=== PATIENT | male | born 1945 | race African-American/Black ===

== ENCOUNTER 2021-02-08 14:55 | Outpatient (CLI) | payer MEDICARE | END 2021-02-08 14:56 | disposition home or self-care (01) | LOC: CSHMRI 14:55 | PROVIDERS: ATTEND Anesthesiology Pain Medicine | DX: M47.26 Other spondylosis with radiculopathy, lumbar region (principal) | CPT/HCPCS: 72148 ==

== ENCOUNTER 2021-12-06 11:20 | Outpatient (CLI) | payer MEDICARE | END 2021-12-06 11:21 | disposition home or self-care (01) | LOC: CSHULT 11:20 | PROVIDERS: ATTEND Family Medicine | DX: R22.9 Localized swelling, mass and lump, unspecified (principal) | CPT/HCPCS: 93970 ==

== ENCOUNTER 2022-04-02 12:51 | Outpatient (CLI) | payer MEDICARE | END 2022-04-02 12:52 | disposition home or self-care (01) | LOC: CSHWCC 12:51 | PROVIDERS: ATTEND Nurse Practitioner Family | DX: I87.312 Chronic venous hypertension (idiopathic) with ulcer of left lower extremity (principal); L97.822 Non-pressure chronic ulcer of other part of left lower leg with fat layer exposed; R60.0 Localized edema | CPT/HCPCS: 11042; 97139; G0463; 99203 ==

== ENCOUNTER 2022-04-16 13:47 | Outpatient (CLI) | payer MEDICARE | END 2022-04-16 13:48 | disposition home or self-care (01) | LOC: CSHWCC 13:47 | PROVIDERS: ATTEND Nurse Practitioner Family | DX: I87.312 Chronic venous hypertension (idiopathic) with ulcer of left lower extremity (principal); L97.822 Non-pressure chronic ulcer of other part of left lower leg with fat layer exposed; R60.0 Localized edema | CPT/HCPCS: 99212; G0463 ==

== ENCOUNTER 2023-07-07 13:09 | Outpatient (CLI) | payer MEDICARE | END 2023-07-07 13:10 | disposition home or self-care (01) | LOC: CSHMRI 13:09 | PROVIDERS: ATTEND Surgery | DX: M51.26 Other intervertebral disc displacement, lumbar region (principal); M47.816 Spondylosis without myelopathy or radiculopathy, lumbar region; M47.817 Spondylosis without myelopathy or radiculopathy, lumbosacral region | CPT/HCPCS: 72110; 72148 ==

== ENCOUNTER 2023-12-30 08:40 | Outpatient (CLI) | payer MEDICARE | END 2023-12-30 08:41 | disposition home or self-care (01) | LOC: CSHWCC 08:40 | PROVIDERS: ATTEND Nurse Practitioner Family | DX: T81.31XD Disruption of external operation (surgical) wound, not elsewhere classified, subsequent encounter (principal); T81.32XD Disruption of internal operation (surgical) wound, not elsewhere classified, subsequent encounter; E11.628 Type 2 diabetes mellitus with other skin complications | CPT/HCPCS: 11043; 11046; G0463; 99213 ==

== ENCOUNTER 2024-01-01 12:43 | Outpatient (CLI) | payer MEDICARE | END 2024-01-01 12:44 | disposition home or self-care (01) | LOC: CSHWCC 12:43 | PROVIDERS: ATTEND Nurse Practitioner Family | DX: T81.31XD Disruption of external operation (surgical) wound, not elsewhere classified, subsequent encounter (principal); T81.32XD Disruption of internal operation (surgical) wound, not elsewhere classified, subsequent encounter; E11.628 Type 2 diabetes mellitus with other skin complications | CPT/HCPCS: 97605 ==

== ENCOUNTER 2024-01-05 13:55 | Outpatient (CLI) | payer MEDICARE | END 2024-01-05 13:56 | disposition home or self-care (01) | LOC: CSHWCC 13:55 | PROVIDERS: ATTEND Nurse Practitioner Family | DX: T81.31XD Disruption of external operation (surgical) wound, not elsewhere classified, subsequent encounter (principal); T81.32XD Disruption of internal operation (surgical) wound, not elsewhere classified, subsequent encounter; E11.628 Type 2 diabetes mellitus with other skin complications | CPT/HCPCS: 11043; 97605 ==

== ENCOUNTER 2024-01-08 11:17 | Outpatient (CLI) | payer MEDICARE | END 2024-01-08 11:18 | disposition home or self-care (01) | LOC: CSHWCC 11:17 | PROVIDERS: ATTEND Nurse Practitioner Family | DX: T81.31XD Disruption of external operation (surgical) wound, not elsewhere classified, subsequent encounter (principal); T81.32XD Disruption of internal operation (surgical) wound, not elsewhere classified, subsequent encounter; E11.628 Type 2 diabetes mellitus with other skin complications | CPT/HCPCS: 17250; 97605 ==

== ENCOUNTER 2024-01-11 14:28 | Outpatient (CLI) | payer MEDICARE | END 2024-01-11 14:29 | disposition home or self-care (01) | LOC: CSHWCC 14:28 | PROVIDERS: ATTEND Nurse Practitioner Family | DX: T81.31XD Disruption of external operation (surgical) wound, not elsewhere classified, subsequent encounter (principal); T81.32XD Disruption of internal operation (surgical) wound, not elsewhere classified, subsequent encounter; E11.628 Type 2 diabetes mellitus with other skin complications | CPT/HCPCS: 97605 ==

== ENCOUNTER 2024-01-14 16:14 | Outpatient (CLI) | payer MEDICARE | END 2024-01-14 16:15 | disposition home or self-care (01) | LOC: CSHWCC 16:14 | PROVIDERS: ATTEND Nurse Practitioner Family | DX: T81.31XD Disruption of external operation (surgical) wound, not elsewhere classified, subsequent encounter (principal); T81.32XD Disruption of internal operation (surgical) wound, not elsewhere classified, subsequent encounter; E11.628 Type 2 diabetes mellitus with other skin complications | CPT/HCPCS: 11043; 11046; 70450; 72125; 72131; 97605 ==

== ENCOUNTER 2024-01-18 13:26 | Outpatient (CLI) | payer MEDICARE | END 2024-01-18 13:27 | disposition home or self-care (01) | LOC: CSHWCC 13:26 | PROVIDERS: ATTEND Nurse Practitioner Family | DX: T81.31XD Disruption of external operation (surgical) wound, not elsewhere classified, subsequent encounter (principal); T81.32XD Disruption of internal operation (surgical) wound, not elsewhere classified, subsequent encounter; E11.628 Type 2 diabetes mellitus with other skin complications | CPT/HCPCS: 97605 ==

== ENCOUNTER 2024-01-21 15:47 | Outpatient (CLI) | payer MEDICARE | END 2024-01-21 15:48 | disposition home or self-care (01) | LOC: CSHWCC 15:47 | PROVIDERS: ATTEND Nurse Practitioner Family | DX: T81.31XD Disruption of external operation (surgical) wound, not elsewhere classified, subsequent encounter (principal); T81.32XD Disruption of internal operation (surgical) wound, not elsewhere classified, subsequent encounter; E11.628 Type 2 diabetes mellitus with other skin complications | CPT/HCPCS: 11042; 97605 ==

== ENCOUNTER 2024-01-25 13:30 | Outpatient (CLI) | payer MEDICARE | END 2024-01-25 13:31 | disposition home or self-care (01) | LOC: CSHWCC 13:30 | PROVIDERS: ATTEND Nurse Practitioner Family | DX: T81.31XD Disruption of external operation (surgical) wound, not elsewhere classified, subsequent encounter (principal); T81.32XD Disruption of internal operation (surgical) wound, not elsewhere classified, subsequent encounter; E11.628 Type 2 diabetes mellitus with other skin complications | CPT/HCPCS: 97605 ==

== ENCOUNTER 2024-01-28 12:39 | Outpatient (CLI) | payer MEDICARE | END 2024-01-28 12:40 | disposition home or self-care (01) | LOC: CSHWCC 12:39 | PROVIDERS: ATTEND Nurse Practitioner Family | DX: T81.31XD Disruption of external operation (surgical) wound, not elsewhere classified, subsequent encounter (principal); T81.32XD Disruption of internal operation (surgical) wound, not elsewhere classified, subsequent encounter; E11.628 Type 2 diabetes mellitus with other skin complications | CPT/HCPCS: 11042; 11045 ==

== ENCOUNTER 2024-02-01 | Outpatient (CLI) | payer MEDICARE | END 2024-02-01 14:23 | disposition home or self-care (01) | DX: T81.31XD Disruption of external operation (surgical) wound, not elsewhere classified, subsequent encounter (principal); T81.32XD Disruption of internal operation (surgical) wound, not elsewhere classified, subsequent encounter; E11.628 Type 2 diabetes mellitus with other skin complications ==

== ENCOUNTER 2024-02-08 15:51 | Outpatient (CLI) | payer MEDICARE | END 2024-02-08 15:52 | disposition home or self-care (01) | LOC: CSHWCC 15:51 | PROVIDERS: ATTEND Nurse Practitioner Family | DX: T81.31XD Disruption of external operation (surgical) wound, not elsewhere classified, subsequent encounter (principal); T81.32XD Disruption of internal operation (surgical) wound, not elsewhere classified, subsequent encounter; E11.628 Type 2 diabetes mellitus with other skin complications | CPT/HCPCS: 97605 ==

== ENCOUNTER 2024-02-15 13:26 | Outpatient (CLI) | payer MEDICARE | END 2024-02-15 13:27 | disposition home or self-care (01) | LOC: CSHWCC 13:26 | PROVIDERS: ATTEND Nurse Practitioner Family | DX: T81.31XA Disruption of external operation (surgical) wound, not elsewhere classified, initial encounter (principal); E11.628 Type 2 diabetes mellitus with other skin complications | CPT/HCPCS: 11043; 87070; 87205; 97605; G0463; 87077; 87186; 99213 ==

== ENCOUNTER 2024-02-18 15:15 | Outpatient (CLI) | payer MEDICARE | END 2024-02-18 15:16 | disposition home or self-care (01) | LOC: CSHWCC 15:15 | PROVIDERS: ATTEND Nurse Practitioner Family | DX: T81.31XD Disruption of external operation (surgical) wound, not elsewhere classified, subsequent encounter (principal); T81.32XD Disruption of internal operation (surgical) wound, not elsewhere classified, subsequent encounter; E11.628 Type 2 diabetes mellitus with other skin complications | CPT/HCPCS: 97605 ==

== ENCOUNTER 2024-03-28 12:45 | Outpatient (CLI) | payer MEDICARE | END 2024-03-28 12:46 | disposition home or self-care (01) | LOC: CSHWCC 12:45 | PROVIDERS: ATTEND Family Medicine | DX: T81.31XD Disruption of external operation (surgical) wound, not elsewhere classified, subsequent encounter (principal); T81.32XD Disruption of internal operation (surgical) wound, not elsewhere classified, subsequent encounter; E11.628 Type 2 diabetes mellitus with other skin complications | CPT/HCPCS: 97597; 97598 ==

== ENCOUNTER 2024-03-31 16:11 | Outpatient (CLI) | payer MEDICARE | END 2024-03-31 16:12 | disposition home or self-care (01) | LOC: CSHWCC 16:11 | PROVIDERS: ATTEND Nurse Practitioner Family | DX: E11.628 Type 2 diabetes mellitus with other skin complications (principal); T81.31XD Disruption of external operation (surgical) wound, not elsewhere classified, subsequent encounter; T81.32XD Disruption of internal operation (surgical) wound, not elsewhere classified, subsequent encounter | CPT/HCPCS: 97605 ==

== ENCOUNTER 2024-04-04 15:22 | Outpatient (CLI) | payer MEDICARE | END 2024-04-04 15:23 | disposition home or self-care (01) | LOC: CSHWCC 15:22 | PROVIDERS: ATTEND Nurse Practitioner Family | DX: T81.31XD Disruption of external operation (surgical) wound, not elsewhere classified, subsequent encounter (principal); T81.32XD Disruption of internal operation (surgical) wound, not elsewhere classified, subsequent encounter; I87.312 Chronic venous hypertension (idiopathic) with ulcer of left lower extremity; E11.628 Type 2 diabetes mellitus with other skin complications | CPT/HCPCS: 11042; 11045; 97605 ==

== ENCOUNTER 2024-04-11 13:13 | Outpatient (CLI) | payer MEDICARE | END 2024-04-11 13:14 | disposition home or self-care (01) | LOC: CSHWCC 13:13 | PROVIDERS: ATTEND Family Medicine | DX: T81.31XD Disruption of external operation (surgical) wound, not elsewhere classified, subsequent encounter (principal); T81.32XD Disruption of internal operation (surgical) wound, not elsewhere classified, subsequent encounter; E11.628 Type 2 diabetes mellitus with other skin complications; I87.312 Chronic venous hypertension (idiopathic) with ulcer of left lower extremity; L97.929 Non-pressure chronic ulcer of unspecified part of left lower leg with unspecified severity | CPT/HCPCS: 97605 ==

== ENCOUNTER 2024-05-02 13:08 | Outpatient (CLI) | payer MEDICARE | END 2024-05-02 13:09 | disposition home or self-care (01) | LOC: CSHWCC 13:08 | PROVIDERS: ATTEND Nurse Practitioner Family | DX: T81.31XD Disruption of external operation (surgical) wound, not elsewhere classified, subsequent encounter (principal); T81.32XD Disruption of internal operation (surgical) wound, not elsewhere classified, subsequent encounter; E11.628 Type 2 diabetes mellitus with other skin complications; I87.312 Chronic venous hypertension (idiopathic) with ulcer of left lower extremity; L97.929 Non-pressure chronic ulcer of unspecified part of left lower leg with unspecified severity | CPT/HCPCS: 11042 ==

== ENCOUNTER 2024-05-09 14:28 | Outpatient (CLI) | payer MEDICARE | END 2024-05-09 14:29 | disposition home or self-care (01) | LOC: CSHWCC 14:28 | PROVIDERS: ATTEND Nurse Practitioner Family | DX: T81.31XD Disruption of external operation (surgical) wound, not elsewhere classified, subsequent encounter (principal); I87.313 Chronic venous hypertension (idiopathic) with ulcer of bilateral lower extremity; E11.628 Type 2 diabetes mellitus with other skin complications; L97.212 Non-pressure chronic ulcer of right calf with fat layer exposed; L97.222 Non-pressure chronic ulcer of left calf with fat layer exposed | CPT/HCPCS: 11042; 11045 ==

== ENCOUNTER 2024-05-20 13:25 | Outpatient (CLI) | payer MEDICARE | END 2024-05-20 13:26 | disposition home or self-care (01) | LOC: CSHWCC 13:25 | PROVIDERS: ATTEND Nurse Practitioner Family | DX: T81.31XD Disruption of external operation (surgical) wound, not elsewhere classified, subsequent encounter (principal); I87.313 Chronic venous hypertension (idiopathic) with ulcer of bilateral lower extremity; E11.628 Type 2 diabetes mellitus with other skin complications; L97.212 Non-pressure chronic ulcer of right calf with fat layer exposed; L97.222 Non-pressure chronic ulcer of left calf with fat layer exposed | CPT/HCPCS: 11042 ==

== ENCOUNTER → 2024-05-27 | Outpatient (CLI) | payer MEDICARE | LOC: CSHWCC 13:00 | PROVIDERS: ATTEND Nurse Practitioner Family | DX: T81.31XD Disruption of external operation (surgical) wound, not elsewhere classified, subsequent encounter (principal); I87.313 Chronic venous hypertension (idiopathic) with ulcer of bilateral lower extremity; E11.628 Type 2 diabetes mellitus with other skin complications; L97.212 Non-pressure chronic ulcer of right calf with fat layer exposed; L97.222 Non-pressure chronic ulcer of left calf with fat layer exposed | CPT/HCPCS: 11042 ==

== ENCOUNTER 2024-06-03 15:03 | Outpatient (CLI) | payer MEDICARE | END 2024-06-03 15:04 | disposition home or self-care (01) | LOC: CSHWCC 15:03 | PROVIDERS: ATTEND Nurse Practitioner Family | DX: T81.31XD Disruption of external operation (surgical) wound, not elsewhere classified, subsequent encounter (principal); E11.628 Type 2 diabetes mellitus with other skin complications; I87.313 Chronic venous hypertension (idiopathic) with ulcer of bilateral lower extremity; E11.622 Type 2 diabetes mellitus with other skin ulcer; L97.212 Non-pressure chronic ulcer of right calf with fat layer exposed; L97.222 Non-pressure chronic ulcer of left calf with fat layer exposed | CPT/HCPCS: 11042 ==

== ENCOUNTER 2024-06-17 14:22 | Outpatient (CLI) | payer MEDICARE | END 2024-06-17 14:23 | disposition home or self-care (01) | LOC: CSHWCC 14:22 | PROVIDERS: ATTEND Nurse Practitioner Family | DX: T81.31XD Disruption of external operation (surgical) wound, not elsewhere classified, subsequent encounter (principal); E11.628 Type 2 diabetes mellitus with other skin complications; I87.313 Chronic venous hypertension (idiopathic) with ulcer of bilateral lower extremity; E11.622 Type 2 diabetes mellitus with other skin ulcer; L97.212 Non-pressure chronic ulcer of right calf with fat layer exposed; L97.222 Non-pressure chronic ulcer of left calf with fat layer exposed | CPT/HCPCS: 97597 ==

== ENCOUNTER 2024-07-15 12:42 | Outpatient (CLI) | payer MEDICARE | END 2024-07-15 12:43 | disposition home or self-care (01) | LOC: CSHWCC 12:42 | PROVIDERS: ATTEND Nurse Practitioner Family | DX: E11.628 Type 2 diabetes mellitus with other skin complications (principal); I87.313 Chronic venous hypertension (idiopathic) with ulcer of bilateral lower extremity; L97.212 Non-pressure chronic ulcer of right calf with fat layer exposed; L97.222 Non-pressure chronic ulcer of left calf with fat layer exposed | CPT/HCPCS: 11042 ==

== ENCOUNTER 2024-08-19 14:14 | Outpatient (CLI) | payer MEDICARE | END 2024-08-19 14:15 | disposition home or self-care (01) | LOC: CSHWCC 14:14 | PROVIDERS: ATTEND Nurse Practitioner Family | DX: I87.313 Chronic venous hypertension (idiopathic) with ulcer of bilateral lower extremity (principal); E11.622 Type 2 diabetes mellitus with other skin ulcer; L97.212 Non-pressure chronic ulcer of right calf with fat layer exposed; L97.222 Non-pressure chronic ulcer of left calf with fat layer exposed; E11.628 Type 2 diabetes mellitus with other skin complications | CPT/HCPCS: 11042; 99213; G0463 ==

== ENCOUNTER 2024-08-26 13:35 | Outpatient (CLI) | payer MEDICARE | END 2024-08-26 13:36 | disposition home or self-care (01) | LOC: CSHWCC 13:35 | PROVIDERS: ATTEND Nurse Practitioner Family | DX: I87.313 Chronic venous hypertension (idiopathic) with ulcer of bilateral lower extremity (principal); E11.622 Type 2 diabetes mellitus with other skin ulcer; L97.212 Non-pressure chronic ulcer of right calf with fat layer exposed; L97.222 Non-pressure chronic ulcer of left calf with fat layer exposed; E11.628 Type 2 diabetes mellitus with other skin complications | CPT/HCPCS: 11042 ==

== ENCOUNTER 2024-09-09 13:55 | Outpatient (CLI) | payer MEDICARE | END 2024-09-09 13:56 | disposition home or self-care (01) | LOC: CSHWCC 13:55 | PROVIDERS: ATTEND Nurse Practitioner Family | DX: I87.313 Chronic venous hypertension (idiopathic) with ulcer of bilateral lower extremity (principal); L97.212 Non-pressure chronic ulcer of right calf with fat layer exposed; L97.222 Non-pressure chronic ulcer of left calf with fat layer exposed; E11.628 Type 2 diabetes mellitus with other skin complications | CPT/HCPCS: 11042 ==

== ENCOUNTER 2024-09-29 11:58 | Outpatient (CLI) | payer MEDICARE | END 2024-09-29 11:59 | disposition home or self-care (01) | LOC: CSHWCC 11:58 | PROVIDERS: ATTEND Nurse Practitioner Family | DX: I87.313 Chronic venous hypertension (idiopathic) with ulcer of bilateral lower extremity (principal); E11.622 Type 2 diabetes mellitus with other skin ulcer; L97.212 Non-pressure chronic ulcer of right calf with fat layer exposed; L97.222 Non-pressure chronic ulcer of left calf with fat layer exposed | CPT/HCPCS: 97597; G0463; 99212 ==

== ENCOUNTER 2024-10-07 11:48 | Outpatient (CLI) | payer MEDICARE | END 2024-10-07 11:49 | disposition home or self-care (01) | LOC: CSHWCC 11:48 | PROVIDERS: ATTEND Nurse Practitioner Family | DX: I87.313 Chronic venous hypertension (idiopathic) with ulcer of bilateral lower extremity (principal); E11.622 Type 2 diabetes mellitus with other skin ulcer; L97.212 Non-pressure chronic ulcer of right calf with fat layer exposed; L97.222 Non-pressure chronic ulcer of left calf with fat layer exposed; E11.628 Type 2 diabetes mellitus with other skin complications | CPT/HCPCS: 99212; G0463 ==

== ENCOUNTER 2024-10-28 12:52 | Outpatient (CLI) | payer MEDICARE | END 2024-10-28 12:53 | disposition home or self-care (01) | LOC: CSHWCC 12:52 | PROVIDERS: ATTEND Family Medicine | DX: E11.628 Type 2 diabetes mellitus with other skin complications (principal); I87.313 Chronic venous hypertension (idiopathic) with ulcer of bilateral lower extremity; L97.212 Non-pressure chronic ulcer of right calf with fat layer exposed; L97.222 Non-pressure chronic ulcer of left calf with fat layer exposed | CPT/HCPCS: 97597 ==

== ENCOUNTER 2024-11-10 12:36 | Outpatient (CLI) | payer MEDICARE | END 2024-11-10 12:37 | disposition home or self-care (01) | LOC: CSHWCC 12:36 | PROVIDERS: ATTEND Nurse Practitioner Family | DX: I87.313 Chronic venous hypertension (idiopathic) with ulcer of bilateral lower extremity (principal); E11.622 Type 2 diabetes mellitus with other skin ulcer; L97.212 Non-pressure chronic ulcer of right calf with fat layer exposed; L97.222 Non-pressure chronic ulcer of left calf with fat layer exposed; E11.628 Type 2 diabetes mellitus with other skin complications | CPT/HCPCS: 99212; G0463 ==

== ENCOUNTER 2024-11-24 11:57 | Outpatient (CLI) | payer MEDICARE | END 2024-11-24 11:58 | disposition home or self-care (01) | LOC: CSHWCC 11:57 | PROVIDERS: ATTEND Nurse Practitioner Family | DX: E11.628 Type 2 diabetes mellitus with other skin complications (principal); I87.313 Chronic venous hypertension (idiopathic) with ulcer of bilateral lower extremity; L97.212 Non-pressure chronic ulcer of right calf with fat layer exposed; L97.222 Non-pressure chronic ulcer of left calf with fat layer exposed | CPT/HCPCS: 11042; 11045; G0463; 99213 ==

== ENCOUNTER 2024-12-01 14:18 | Outpatient (CLI) | payer MEDICARE | END 2024-12-01 14:19 | disposition home or self-care (01) | LOC: CSHWCC 14:18 | PROVIDERS: ATTEND Nurse Practitioner Family | DX: I87.313 Chronic venous hypertension (idiopathic) with ulcer of bilateral lower extremity (principal); E11.622 Type 2 diabetes mellitus with other skin ulcer; L97.212 Non-pressure chronic ulcer of right calf with fat layer exposed; L97.222 Non-pressure chronic ulcer of left calf with fat layer exposed; E11.628 Type 2 diabetes mellitus with other skin complications ==

== ENCOUNTER 2024-12-30 12:43 | Outpatient (CLI) | payer MEDICARE | END 2024-12-30 12:44 | disposition home or self-care (01) | LOC: CSHWCC 12:43 | PROVIDERS: ATTEND Nurse Practitioner Family | DX: Z87.2 Personal history of diseases of the skin and subcutaneous tissue (principal) | CPT/HCPCS: 99212; G0463 ==

== ENCOUNTER 2025-06-28 12:39 | Outpatient (CLI) | payer MEDICARE | END 2025-06-28 12:40 | disposition home or self-care (01) | LOC: CSHWCC 12:39 | PROVIDERS: ATTEND Nurse Practitioner Family | DX: I87.312 Chronic venous hypertension (idiopathic) with ulcer of left lower extremity (principal); E11.628 Type 2 diabetes mellitus with other skin complications; E11.622 Type 2 diabetes mellitus with other skin ulcer; L97.221 Non-pressure chronic ulcer of left calf limited to breakdown of skin; L97.211 Non-pressure chronic ulcer of right calf limited to breakdown of skin | CPT/HCPCS: 29581; 99213; G0463 ==

== ENCOUNTER 2025-07-06 12:52 | Outpatient (CLI) | payer MEDICARE | END 2025-07-06 12:53 | disposition home or self-care (01) | LOC: CSHWCC 12:52 | PROVIDERS: ATTEND Nurse Practitioner Family | DX: I87.313 Chronic venous hypertension (idiopathic) with ulcer of bilateral lower extremity (principal); E11.628 Type 2 diabetes mellitus with other skin complications; E11.622 Type 2 diabetes mellitus with other skin ulcer; L97.221 Non-pressure chronic ulcer of left calf limited to breakdown of skin; L97.211 Non-pressure chronic ulcer of right calf limited to breakdown of skin | CPT/HCPCS: 29581; 99213; G0463 ==

== ENCOUNTER 2025-07-20 13:46 | Outpatient (CLI) | payer MEDICARE | END 2025-07-20 13:47 | disposition home or self-care (01) | LOC: CSHWCC 13:46 | PROVIDERS: ATTEND Nurse Practitioner Family | DX: E11.628 Type 2 diabetes mellitus with other skin complications (principal); L97.211 Non-pressure chronic ulcer of right calf limited to breakdown of skin; L97.221 Non-pressure chronic ulcer of left calf limited to breakdown of skin; I87.312 Chronic venous hypertension (idiopathic) with ulcer of left lower extremity | CPT/HCPCS: 99213; G0463 ==